=== PATIENT | female | born 1965 | race Caucasian/White ===

== ENCOUNTER 2017-05-23 14:36 | Emergency (ER) | payer OTHER ==
[~2017-05-23] VITALS: Ht 175.3 cm; Wt 61.2 kg
--- NOTE | 2017-05-23 15:15 | NUR ---
ARRIVAL PATIENT ARRIVED TO ED AMBULATORY, C/O OF RIGHT GROIN PAIN SINCE THE May, WENT TO URGENT CARE FOR A FOLLOW UP FOR PAIN, BUT WAS SENT TO THE ED, PATIENT STATES THE PAIN IS WORSE, WAS SEEN IN THE [facility] AND TOLD SHE PULLED HER GROIN MUSCLE, TODAY IS HERE FOR FURTHER EVAL.
[2017-05-23 15:21] VITALS: BP 158/95
[2017-05-23 16:01] LABS: BASOPHIL # 0.1 10^3/uL (0.0-0.1); BASOPHIL % 0.8 % (0.0-0.2); EOSINOPHIL # 0.1 10^3/uL (0.0-0.2); HEMOGLOBIN 13.9 g/dL (12.0-15.0); LYMPHOCYTES # 3.8 10^3/uL (1.0-4.8); LYMPHOCYTES % 47.7 % (24.0-44.0); MEAN CELL HGB 29.3 pg (26-34); MEAN CELL HGB CONCENTRATION 32.6 g/dL (33-37); MEAN CORP VOLUME 89.9 fL (78-100); MEAN PLATELET VOLUME 9.4 fL (7.8-11.0); MONOCYTES # 0.6 10^3/uL (0.3-0.8); MONOCYTES % 6.9 % (5.0-12.0); NEUTROPHIL # 3.5 10^3/uL (1.8-7.7); NEUTROPHILS % 43.5 % (41.0-85.0); RED CELL DISTRIBUTION WIDTH 13.1 % (11.5-14.5); WHITE BLOOD CELL 7.9 10^3/uL (4.5-11.0)
[2017-05-23 16:28] LABS: CALCIUM 9.1 mg/dL (8.4-10.5); CARBON DIOXIDE 29.8 mmol/L (20.0-32)
--- NOTE | 2017-05-23 16:52 | DIREP ---
PROCEDURE:CT ABDOMEN/PELVIS W/O CONTRAST COMPARISON:[facility], CT, CT RENAL STONE PROTOCOL, 05/08/2017, 08:18 PM. INDICATIONS:[facility] TECHNIQUE:Axial images were created through the abdomen and pelvis without intravenous contrast material. No oral contrast was administered. Sagittal and coronal reconstructions were performed from source images. FINDINGS: LUNG BASES:Normal. No visible pulmonary or pleural disease. LIVER:Normal. No significant liver lesions are identified. BILIARY:Normal. No visible dilatation or calcification. PANCREAS:Normal. No lesion, fluid collection, ductal dilatation, or atrophy. SPLEEN:Normal. No enlargement or focal lesion. ADRENALS:Normal. No mass or enlargement. URINARY TRACT:Normal. No focal lesions or hydronephrosis. AORTA/VASCULAR:Arterial calcium RETROPERITONEUM:Normal. No mass or adenopathy. BOWEL/MESENTERY:Normal. There is no intestinal obstruction, free fluid, free air or mesenteric inflammatory changes. ABDOMINAL WALL:Normal. No mass or hernia. PELVIC ORGANS: The uterus is atrophic or surgically absent. BONES:Normal for age. No bony lesion or acute fracture. OTHER:Negative. CONCLUSION: 1. No diagnostic abnormality Dictated by: Shashank Marcos Jr. on 05/23/2017 at 04:48 PM
[2017-05-23 17:40] LABS: BILIRUBIN,URINE NEGATIVE (NEGATIVE); UROBILINOGEN,URINE NORMAL (NEGATIVE)
[2017-05-23 17:42] LABS: APPEARANCE,URINE CLEAR (CLEAR); UA COLOR YELLOW (YELLOW)
--- NOTE | 2017-05-23 17:56 | ER.PDOC ---
General Chief Complaint: Extremities Stated Complaint: WC;ABDOMINAL PAIN Time seen by MD: 16:00 Source: patient Exam Limitations: no limitations History of Present Illness Timing/Duration: 1 week Severity/Quality: mild Radiation: no radiation Associated Symptoms: denies symptoms Allergies: Coded Allergies: Penicillins (Verified Allergy, Unknown, ALEXANDRE, 05/23/17) Home Meds No Active Prescriptions or Reported Meds Vital Signs First Vital Signs Date Time Temp Pulse Resp B/P (MAP) Pulse Ox O2 Delivery O2 Flow Rate FiO2 05/23/17 15:15 97.7 81 20 100 05/23/17 15:21 158/95 (116) Last Vital Signs Date Time Temp Pulse Resp B/P (MAP) Pulse Ox O2 Delivery O2 Flow Rate FiO2 05/23/17 15:21 97.7 78 20 158/95 (116) 100 Past Medical History Medical History: no pertinent history Surgical History: appendectomy, hysterectomy, knee, other LMP (females 10-50): hysterectomy Social History Smoking: cigarettes Alcohol Use: none Drug Use: none All Other Systems: Reviewed and Negative Physical Exam General Appearance: No Apparent Distress, WD/WN HEENT: PERRL/EOMI, Normal ENT Inspection, TMs Normal, Pharynx Normal Neck: Non-Tender, Full Range of Motion, Supple, Normal Inspection Respiratory: chest non-tender, lungs clear, normal breath sounds, no respiratory distress, no accessory muscle use Cardiovascular: Normal Peripheral Pulses, Regular Rate, Rhythm, No Edema, No Gallop, No JVD, No Murmur Gastrointestinal: Tenderness (R INGUINAL AREA), Other Back: Normal Inspection, No CVA Tenderness, No Vertebral Tenderness Extremities: Normal Range of Motion, Non-Tender, Normal Inspection, No Pedal Edema, No Calf Tenderness, Normal Capillary Refill, Pelvis Stable Neurologic/Psychiatric: 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 NML as Tested, No Motor/Sensory Deficits, Alert, Normal Mood/Affect, Oriented x 3 Skin: Normal Color, Warm/Dry Lymphatic: No Adenopathy Results/Orders Results/Orders Laboratory Tests Test 05/23/17 15:52 05/23/17 17:35 White Blood Count 7.9 10^3/uL (4.5-11.0) Red Blood Count 4.75 10^6/uL (4.00-5.20) Hemoglobin 13.9 g/dL (12.0-15.0) Hematocrit 42.7 % (36.0-46.0) Mean Corpuscular Volume 89.9 fL (78-100) Mean Corpuscular Hemoglobin 29.3 pg (26-34) Mean Corpuscular Hemoglobin Concent 32.6 g/dL (33-37) Red Cell Distribution Width 13.1 % (11.5-14.5) Platelet Count 389 10^3/uL (150-400) Mean Platelet Volume 9.4 fL (7.8-11.0) Neutrophils (%) (Auto) 43.5 % (41.0-85.0) Lymphocytes (%) (Auto) 47.7 % (24.0-44.0) Monocytes (%) (Auto) 6.9 % (5.0-12.0) Neutrophils # (Auto) 3.5 10^3/uL (1.8-7.7) Lymphocytes # (Auto) 3.8 10^3/uL (1.0-4.8) Monocytes # (Auto) 0.6 10^3/uL (0.3-0.8) Absolute Immature Granulocyte (auto 0.01 10^3 u/L (0-2) Eosinophils % 1.0 % (0.0-5.0) Basophils % 0.8 % (0.0-0.2) Basophils # 0.1 10^3/uL (0.0-0.1) Eosinophil Count 0.1 10^3/uL (0.0-0.2) Prothrombin Time 10.2 SEC (9.8-11.9) Prothrombin Time INR (Non-Therap) 1.0 Activated Partial Thromboplast Time 24.4 SEC (24.67-30.72) Sodium Level 139 mmol/L (132-145) Potassium Level 3.8 mmol/L (3.6-5.2) Chloride Level 102.0 mmol/L (96-109) Carbon Dioxide Level 29.8 mmol/L (20.0-32) Anion Gap 11.0 Blood Urea Nitrogen 22 mg/dL (7-18) Creatinine 1.03 mg/dL (0.59-1.40) Estimated GFR () 68.4 (>/=60) BUN/Creatinine Ratio 21.0 Glucose Level 97 mg/dL (70-110) Calcium Level 9.1 mg/dL (8.4-10.5) Total Bilirubin 0.5 mg/dL (0.2-1.0) Aspartate Amino Transf (AST/SGOT) 26 U/L (0-35) Alanine Aminotransferase (ALT/SGPT) 29 U/L (12-78) Alkaline Phosphatase 74 U/L (50-136) Total Protein 7.5 g/dL (6.4-8.2) Albumin 3.9 g/dL (3.4-5.0) Globulin 3.6 Amylase Level 60 U/L (25-115) Lipase 104 U/L (114-286) Percent Immature Gran (Cell Imm) 0.10 % (0.00-0.50) Helicobacter pylori Screen NEGATIVE (NEGATIVE) Urine Collection Type VOID Urine Color YELLOW (YELLOW) Urine Appearance CLEAR (CLEAR) Urine Bilirubin NEGATIVE MG/DL (NEGATIVE) Urine Ketones NEGATIVE (NEGATIVE) Urine Specific [place] 1.005 (1.005-1.035) Urine pH 7 (5.0-6.0) Urine Protein NEGATIVE (NEGATIVE) Urine Urobilinogen NORMAL (NEGATIVE) Urine Nitrate NEGATIVE (NEGATIVE) Urine Leukocyte Esterase NEGATIVE (NEGATIVE) Urine Blood NEGATIVE (NEGATIVE) Urine Glucose NORMAL (NEGATIVE) Course Blood Pressure Systolic: 158 Blood Pressure Diastolic: 95 Blood Pressure Mean: 116 Departure Time of Disposition: 18:00 Disposition: 01 HOME, SELF-CARE Impression: Primary Impression: Abdominal wall strain Condition: Stable Referrals: PCP,UNKNOWN (PCP) PRIMARY CARE PROVIDER Scripts No Active Prescriptions or Reported Meds Duration or Time Spent with Pa: 2 HRS MICAELA COLOEY MD May 23, 2017 17:55
[2017-05-23 18:06] VITALS: BP 143/86
[2017-05-23 18:09] VITALS: BP 158/95
== END 2017-05-23 18:06 | disposition home or self-care (01) ==
LOC: ER 14:36
DX: S39.011A Strain of muscle, fascia and tendon of abdomen, initial encounter (principal); F17.210 Nicotine dependence, cigarettes, uncomplicated; Z88.0 Allergy status to penicillin; Z90.710 Acquired absence of both cervix and uterus; X58.XXXA Exposure to other specified factors, initial encounter; Y93.89 Activity, other specified; Y92.89 Other specified places as the place of occurrence of the external cause; Y99.8 Other external cause status
CPT/HCPCS: 36415; 74176; 80053; 81002; 82150; 83690; 85025; 85610; 85730; 86677; 99285